=== PATIENT | male | born 1965 | race Caucasian/White ===

== ENCOUNTER 2022-01-02 16:25 | Inpatient (IN) | payer BC ==
[~2022-01-02] VITALS: Ht 175.3 cm; Wt 95.1 kg
[2022-01-02] MEDS ORDERED: ONDANSETRON HCL 4MG/2ML INJ IV STA (17:31)
[2022-01-02] MEDS ORDERED: SODIUM CHLORIDE 0.9% 1,000 ML IV ONE (17:45)
[2022-01-02 17:47] LABS: BASOPHILS % 0.4 % (0.0-2.0); EOSINOPHILS % 0.6 % (0.0-5.0); HEMOGLOBIN. 13.3 g/dL (14.0-18.0); LYMPHOCYTES % 14.6 % (20.0-50.0); MEAN CORPUSCULAR HEMOGLOBIN 28.4 pg (28.0-32.0); MEAN CORPUSCULAR VOLUME 85.2 fL (80.0-94.0); MEAN PLATELET VOLUME 8.7 fl (7.4-10.4); MONOCYTES % 6.6 % (2.0-8.0); NEUTROPHILS % 77.8 % (40.0-76.0); PLATELET 289 x1000/uL (130-400); RED CELL DISTRIBUTION WIDTH 15.3 % (11.6-14.6)
[2022-01-02 17:57] LABS: CHLORIDE 114 mEq/L (98-107)
[2022-01-02 18:14] LABS: D-DIMER 0.36 mg/L FEU (<0.50); INR 0.9; PARTIAL THROMBOPLASTIN TIME 22.7 sec (23.4-31.0); PROTHROMBIN TIME 10.1 sec (9.6-11.0)
[2022-01-02] MEDS ORDERED: MAGNESIUM/ALUMINUM HYDROXIDE/SIMETHICONE 30ML UDC PO PRN (23:00)
[2022-01-02] MEDS ORDERED: KETOROLAC 15MG/ML VIAL IV PRN (23:00)
[2022-01-02] MEDS ORDERED: DOCUSATE SODIUM 100MG CAPSULE PO PRN (23:00)
[2022-01-02] MEDS ORDERED: IPRATROPIUM/ALBUTEROL 0.5-3(2.5)MG/3ML NEB NEB PRN (23:00)
[2022-01-02] MEDS ORDERED: CLONIDINE 0.1MG TABLET PO PRN (23:00)
[2022-01-02] MEDS ORDERED: ZOLPIDEM TARTRATE 5MG TABLET PO PRN (23:00)
[2022-01-02] MEDS ORDERED: ONDANSETRON HCL 4MG/2ML INJ IV PRN (23:00)
[2022-01-02] MEDS ORDERED: GUAIFENESIN 200MG/10ML SUGAR FREE UDC PO PRN (23:00)
[2022-01-02] MEDS ORDERED: ACETAMINOPHEN 325MG TABLET PO PRN ×2 (23:00)
[2022-01-02] MEDS ORDERED: NITROGLYCERIN 0.4MG TABLET SL SL PRN (23:00)
[2022-01-03 00:23] LABS: ETHANOL BLOOD < 10 mg/dL; HDL CHOLESTEROL 32 mg/dL (40-59); LDL CHOLESTEROL 80 mg/dL (5-100); TOTAL IRON BINDING CAPACITY 289 ug/dL (250-450)
[2022-01-03 05:22] LABS: BASOPHILS % 0.6 % (0.0-2.0); EOSINOPHILS % 1.5 % (0.0-5.0); HEMATOCRIT. 38.6 % (42.0-52.0); HEMOGLOBIN. 12.6 g/dL (14.0-18.0); LYMPHOCYTES % 21.6 % (20.0-50.0); MEAN CORPUSCULAR HEMOGLOBIN 28.1 pg (28.0-32.0); MEAN CORPUSCULAR VOLUME 85.7 fL (80.0-94.0); MEAN PLATELET VOLUME 8.5 fl (7.4-10.4); MONOCYTES % 10.2 % (2.0-8.0); NEUTROPHILS % 66.1 % (40.0-76.0); PLATELET 255 x1000/uL (130-400); RED CELL DISTRIBUTION WIDTH 15.3 % (11.6-14.6)
[2022-01-03 05:31] LABS: CHLORIDE 114 mEq/L (98-107)
[2022-01-03 05:40] LABS: CREATINE KINASE 47 IU/L (39-308); CREATINE KINASE MB FRACTION < 1.0 ng/mL (0.5-3.6); PHOSPHORUS 2.5 mg/dL (2.5-4.9)
[2022-01-03 09:28] VITALS: BP 144/87
[2022-01-03] MEDS ORDERED: ROSU20TA2 MT (09:28)
[2022-01-03] MEDS ORDERED: DEXL60CA3 MT (09:28)
[2022-01-03] MEDS ORDERED: LOSA25TA3 MT (09:28)
[2022-01-03 09:32] VITALS: BP 144/87
[2022-01-03] MEDS: ASPIRIN 325MG EC TABLET PO SCH (09:51)
[2022-01-03] MEDS: FAMOTIDINE 20MG TABLET PO SCH ×2 (09:51→20:11)
[2022-01-03] MEDS: ENOXAPARIN 30MG/0.3ML SYR SUBCUT SCH ×2 (09:52→20:11)
[2022-01-03 12:03] VITALS: BP 142/89
[2022-01-03 16:20] VITALS: BP 123/85
[2022-01-03 17:05] LABS: CREATINE KINASE 52 IU/L (39-308); CREATINE KINASE MB FRACTION < 1.0 ng/mL (0.5-3.6)
[2022-01-03] MEDS ORDERED: PREDNISONE 10MG TABLET PO SCH (19:00)
[2022-01-03 20:00] VITALS: BP 155/101
[2022-01-04] VITALS (14 sets, daily range): BP systolic 124–144; BP diastolic 77–104
[2022-01-04] MEDS ORDERED: PREDNISONE 10MG TABLET PO SCH ×2 (01:00→06:00)
[2022-01-04] MEDS ORDERED: LIDOCAINE HCL/PF 1% 10 MG/ML 5ML VIAL ONE (07:27)
[2022-01-04] MEDS ORDERED: HEPARIN 1000 UNITS/ML 10ML ONE (07:27)
[2022-01-04] MEDS ORDERED: IODIXANOL 320MG/ML 100 ML BOTTLE IV ONE ×2 (07:27→08:33)
[2022-01-04] MEDS ORDERED: FENTANYL CITRATE/PF 50MCG/ML 2ML VIAL ONE (07:27)
[2022-01-04] MEDS ORDERED: MIDAZOLAM HCL 2 MG/2 ML VIAL ONE (07:28)
[2022-01-04] MEDS ORDERED: DIPHENHYDRAMINE 50MG/ML VIAL ONE (07:53)
[2022-01-04] MEDS ORDERED: NITROGLYCERIN 50MCG/ML 10ML VIAL (CATH LAB) IV ONE (08:27)
[2022-01-04] MEDS ORDERED: TICAGRELOR 90 MG TABLET PO ONE (08:34)
[2022-01-04] MEDS ORDERED: ASPIRIN 81MG TABLET ONE (08:36)
[2022-01-04] MEDS: FAMOTIDINE 20MG TABLET PO SCH ×2 (09:00→21:13)
[2022-01-04] MEDS: ENOXAPARIN 30MG/0.3ML SYR SUBCUT SCH ×2 (09:00→21:14)
[2022-01-04] MEDS: ASPIRIN 325MG EC TABLET PO SCH (09:00)
[2022-01-04] MEDS ORDERED: NITROGLYCERIN 0.4MG TABLET SL SL ONE (09:23)
[2022-01-04] MEDS ORDERED: CARVEDILOL 3.125 MG TABLET PO NR (10:50)
[2022-01-04] MEDS: TICAGRELOR 90 MG TABLET PO SCH (16:48)
[2022-01-05] VITALS: BP 148/86
[2022-01-05 02:00] VITALS: BP 135/76
[2022-01-05 04:00] VITALS: BP 118/89
[2022-01-05 06:00] VITALS: BP 125/83
[2022-01-05 06:40] LABS: BASOPHILS % 0.3 % (0.0-2.0); EOSINOPHILS % 0.2 % (0.0-5.0); HEMATOCRIT. 38.2 % (42.0-52.0); HEMOGLOBIN. 12.7 g/dL (14.0-18.0); LYMPHOCYTES % 15.1 % (20.0-50.0); MEAN CORPUSCULAR HEMOGLOBIN 28.4 pg (28.0-32.0); MEAN CORPUSCULAR VOLUME 85.7 fL (80.0-94.0); MEAN PLATELET VOLUME 9.1 fl (7.4-10.4); MONOCYTES % 8.2 % (2.0-8.0); NEUTROPHILS % 76.2 % (40.0-76.0); PLATELET 277 x1000/uL (130-400); RED BLOOD CELL COUNT 4.45 mill/uL (4.7-6.1); RED CELL DISTRIBUTION WIDTH 15.1 % (11.6-14.6)
[2022-01-05 07:36] LABS: CHLORIDE 106 mEq/L (98-107)
[2022-01-05 08:00] VITALS: BP 151/98
[2022-01-05] MEDS ORDERED: ASPIRIN 81MG TABLET PO SCH (09:00)
[2022-01-05] MEDS: ENOXAPARIN 30MG/0.3ML SYR SUBCUT SCH (09:12)
[2022-01-05] MEDS: FAMOTIDINE 20MG TABLET PO SCH (09:12)
[2022-01-05] MEDS: TICAGRELOR 90 MG TABLET PO SCH (09:12)
[2022-01-05] MEDS ORDERED: FAMO20TA8 PO (09:36)
[2022-01-05] MEDS ORDERED: ASPI-1160 PO (09:36)
[2022-01-05] MEDS ORDERED: TICA90TA PO (09:36)
[2022-01-05 11:36] VITALS: BP 145/71
== END 2022-01-05 12:30 | disposition home or self-care (01) | DRG 247 ==
LOC: ER 16:25 → MICUSO 19:11 → EDBEDREQ 19:14 → EDBEDREQTM 19:14 → 6WST 01-03 09:24 → 5EST 01-04 09:45
PROVIDERS: ADMIT Internal Medicine; ATTEND Internal Medicine
PROC: 027034Z Dilation of Coronary Artery, One Artery with Drug-eluting Intraluminal Device, Percutaneous Approach (ICD-10-PCS; principal; 2022-01-04)
PROC: 4A023N7 Measurement of Cardiac Sampling and Pressure, Left Heart, Percutaneous Approach (ICD-10-PCS; 2022-01-04)
PROC: B211YZZ Fluoroscopy of Multiple Coronary Arteries using Other Contrast (ICD-10-PCS; 2022-01-04)
DX: I25.110 Atherosclerotic heart disease of native coronary artery with unstable angina pectoris (principal); E44.1 Mild protein-calorie malnutrition; I24.9 Acute ischemic heart disease, unspecified; D64.9 Anemia, unspecified; E83.51 Hypocalcemia; E66.9 Obesity, unspecified; F03.90 Unspecified dementia, unspecified severity, without behavioral disturbance, psychotic disturbance, mood disturbance, and anxiety; I10 Essential (primary) hypertension; E78.00 Pure hypercholesterolemia, unspecified; J45.909 Unspecified asthma, uncomplicated; Z91.041 Radiographic dye allergy status; E78.5 Hyperlipidemia, unspecified; Z82.49 Family history of ischemic heart disease and other diseases of the circulatory system; Z68.30 Body mass index [BMI] 30.0-30.9, adult; Z79.899 Other long term (current) drug therapy; Z79.02 Long term (current) use of antithrombotics/antiplatelets; I49.3 Ventricular premature depolarization
CPT/HCPCS: 36415; 71045; 80053; 80061; 80320; 82550; 82553; 82607; 82746; 83036; 83540; 83550; 83735; 83880; 84100; 84439; 84443; 84484; 85025; 85379; 87426; 92928; 93005; 93306; 93454; 93970; 99285; C1725; C1769; C1874; C1887; C1893; J1200; J1644; J1650; J2250; J2405; J3010; J3490; J7030; J7512; Q9967; G0480; J8499